=== PATIENT | female | born 2000 | race Caucasian/White ===

== ENCOUNTER 2020-04-15 10:27 | Emergency (ER) | payer MEDICAID, SELFPAY ==
[2020-04-15 10:29] VITALS: BP 102/65; PULSE 156; RESP 19; TEMP 37.8; O2SAT 99; BMI 18.8
--- NOTE | 2020-04-15 10:58 | ED.VIS.GEN ---
History of Present Illness Chief Complaint: Fever Narrative: Patient presents with fevers for the past few days. She has some cough and some dyspnea. She has no productive cough. She has no back pain or chest pain. She has no dysuria she has no rash, she denies any abdominal pain. She was tested for COVID yesterday but we do not have results. No neck pain or stiffness. No recent travel. Past Medical History - Allergies and Home Meds Allergies/Adverse Reactions: Allergies No Known Allergies Allergy (Verified 04/15/20 11:25) Primary Care Physician: Care Physician,No Primary [Primary Care Provider] - Past Medical History: None Smoking Status: Never smoker Review of Systems All systems negative except as indicated General: Denies: Fever Eyes: Denies: Visual changes - bilaterally ENT: Denies: Rhinorrhea, Sore throat Cardiovascular: Denies: Chest pain, Palpitations Respiratory: Reports: Dyspnea, Cough Gastrointestinal: Denies: Abdominal pain, Nausea, Vomiting Genitourinary: Denies: Dysuria Musculoskeletal: Denies: Myalgias, Arthralgias, Neck pain Skin: Denies: Rash Neurological: Denies: Weakness, Parasthesia Endocrine: Denies: Polyuria Physical Exam Vital Signs/Narrative: Vital Signs Temp Pulse Resp BP Pulse Ox 04/15/20 10:29 100.1 F H 156 H 19 H 102/65 99 General: Well nourished, Well developed, - - Sitting comfortably in bed. Negative for: No Acute Distress Head: Negative for: Normocephalic Eyes: Negative for: Perrl ENT: Moist mucous membranes Neck: Supple Cardiovascular: Regular rate, Regular rhythm Respiratory: No distress, CTA bilaterally Abdomen: Soft, Nontender Back: Nontender, Normal Inspection Extremities: Nontender, No edema Skin: Normal color Neurological: Alert, Normal Strength, Normal Sensation Psychological: Normal affect Diagnostic/Tx/Re-eval Chest X-Ray - ED: 1 View, Normal, Heart, Lungs - Medical Decision Making Patient has a normal chest x-ray she has leukocytosis and she is found to have a urinary tract infection on reevaluation she does have some left-sided CVA tenderness. She clinically has pyelonephritis. She was given 2 L of fluid she has a negative lactic acid and she tells me she is significantly improved. I believe outpatient management is reasonable, I told her if she does not improve or gets worse she needs to return otherwise she received IV Rocephin in the emergency department and will receive outpatient antibiotics. Urine was cultured. ED Disposition - Plan for ED Patient: Disposition: Psychiatric Hospital or Unit Diagnosis: Pyelonephritis Instructions: ED Pyelonephritis Female Adult Prescriptions: Ciprofloxacin [Cipro] 500 mg PO BID #14 tab Transmission Status: Pending to [facility] Hydrocodone Bitart/Apap 5-325 [Clyde 5MG-325MG] 1 tablet PO Q4H PRN PRN 2 Days #10 tablet PRN Reason: Pain Transmission Status: Sent to [facility] Referrals: Care Physician,No Primary [Primary Care Provider] - 3-5 Days
[2020-04-15 11:29] VITALS: BP 102/65; PULSE 156; RESP 19; TEMP 37.8; O2SAT 99
[2020-04-15 11:33] VITALS: BP 102/65; PULSE 110; RESP 19; O2SAT 97
[2020-04-15] MEDS: Ketorolac 15 MG/ML Vial IV (11:34)
[2020-04-15] MEDS: 0.9% Normal Saline 1,000 ML 1000 ML IV (11:34)
[2020-04-15 11:46] LABS: Absolute Lymphocyte Count 1.02 X10^3/uL (0.83-4.51); Basophil# 0.06 X10^3/uL; Basophil% 0.3 % (0-1); Differential Indicated SCAN CRITERIA MET; Eosinophil# 0.07 X10^3/uL; Eosinophils% 0.4 % (0-5); Hemoglobin 13.3 g/dL (12.0-15.0); Lymphocyte # 1.02 X10^3/ul (4.0); Lymphocyte % 5.5 % (19-41); Mean Corp Hgb Conc 33.3 g/dL (32-36); Mean Corpuscular Hgb 29.4 pg (27.0-32.0); Mean Corpuscular Volume 88.5 fL (81-99); Mean Platelet Vol. 10.4 fl (6.2-12.0); Monocyte# 2.16 X10^3/uL; Monocyte% 11.7 % (0-10); NRBC Flagged by Analyzer 0 % (0-5); Neutrophil # 15.02 X10^3/uL (2.7-7.7); Neutrophil % 81.3 % (47-70); POSITIVE DIFFERENTIAL YES; POSITIVE MORPHOLOGY YES; Platelet Count 258 K/mm3 (150-450); RBC Distribution Width CV 12.2 % (11.6-14.6); RBC Distribution Width SD 39.6 fl (35.1-43.9); Red Blood Count 4.52 M/mm3 (4.2-5.4); White Blood Count 18.5 K/mm3 (4.4-11.0)
--- NOTE | 2020-04-15 11:50 | RAD_ITS ---
STUDY: X-RAY CHEST REASON FOR EXAM: Female, 20 years old. FEVER AND COUGH X 4 DAYS; LOSS OF TASTE AND SMELL; TESTED FOR COVID YESTERDAY TECHNIQUE: PA and lateral views of the chest. COMPARISON: None. FINDINGS: EKG electrodes are seen. The lungs are clear and expanded. There is no demonstrated pleural abnormality. Normal size heart. Normal mediastinum and milagros. Normal visualized pulmonary arteries. Normal visualized aortic arch and descending thoracic aorta. Normal visualized thoracic spine. Normal visualized ribs, clavicles, and shoulders. There is no demonstrated abnormality of the visualized soft tissue structures of the upper abdomen. RAD/Chest PA and Lateral IMPRESSION: Normal x-ray examination of the chest. Electronically Signed: Cheikh Lizarraga, at 12:26 EDT , Service support ,
[2020-04-15 11:57] LABS: Color, Urine Yellow (Yellow); Glucose, Dipstick Normal (Normal); Ketone-Dipstick 50 mg/dl (Negative); Leukocyte Esterase-Dipstick 500 /ul (Negative); Nitrite-Dipstick Positive (Negative); Occult Blood-Urine 25 /ul (Negative); Protein-Dipstick 100 mg/dl (Negative); Specific Gravity, Urine 1.015 (1.002-1.030); Urine Clarity Sl. Cloudy (Clear); Urine Urobilinogen 12 mg/dl (Normal)
[2020-04-15 12:00] VITALS: BP 104/64; PULSE 113; RESP 20; TEMP 38.4; O2SAT 96
[2020-04-15 12:00] LABS: ALB/GLOB Ratio 0.7 RATIO (0.9-2.4); AST(SGOT) 8 U/L (15-37); Alanine Aminotransfer ALT/SGPT 14 U/L (13-56); Alkaline Phosphatase 88 U/L (45-117); Anion Gap 7 (5-15); BUN 9 mg/dL (7-18); BUN/Creat Ratio 10.9 RATIO (10-20); Calcium,Total 9.2 mg/dL (8.5-10.1); Chloride 101 mmol/L (98-107); Creatinine, Serum 0.83 mg/dL (0.55-1.02); EST Glomerular Filtration Rate 92 mL/min (>60); Est Glom Filt Rate - Afr Amer 111 mL/min (>60); Estimated Creatinine Clearance 83.74 ml/min; Globulin 4.5 g/dL (2.2-4.2); Glucose 128 mg/dL (74-106); Potassium 3.4 mmol/L (3.5-5.1); Protein, Total 7.5 g/dL (6.4-8.2); Sodium Level 134 mmol/L (136-145); Urine Bilirubin Dipstick 1 mg/dL (Negative)
[2020-04-15 12:08] LABS: Bacteria 2+ /hpf (None Seen); Mucous, Urine 1+ /hpf (<or=2+); Red Blood Cells-Urine 0-5 SEEN /hpf (0-5); Squamous Epithelial Cells - UA 0-5 SEEN /hpf (5-10); White Blood Cells 25-50 SEEN /hpf (0-5)
[2020-04-15] MEDS: Acetaminophen 500 MG Tablet 1000 MG PO (12:56)
[2020-04-15] MEDS: Ceftriaxone 1 GM/50 ML BAG IV (12:57)
[2020-04-15] MEDS: 0.9% Normal Saline 1,000 ML 999 ML IV (12:57)
[2020-04-15 13:00] VITALS: BP 104/64; PULSE 102; RESP 24; TEMP 37.8; O2SAT 97
[2020-04-15 13:03] LABS: Reactive Lymphocyte 2+
[2020-04-15 13:26] LABS: Lactic Acid 1.4 mmol/L (0.4-1.9)
[2020-04-15 13:54] VITALS: BP 96/59; PULSE 107; RESP 18; O2SAT 97
[2020-04-17 12:14] LABS: Pathologist Review Reviewed
== END 2020-04-15 14:08 | disposition home or self-care (01) ==
PROVIDERS: Emergency Provider Emergency Medicine
DX: N12 Tubulo-interstitial nephritis, not specified as acute or chronic (principal)
CPT/HCPCS: 71046; 80053; 81001; 83605; 85025; 87086; 87088; 87186; 96361; 96365; 96375; 99285; J7030; J7050; A4216

== ENCOUNTER 2021-03-23 05:35 | Inpatient (IN) | payer MEDICAID, SELFPAY ==
[2021-03-23] VITALS (22 sets, daily range): BP systolic 99–120; BP diastolic 55–73; PULSE 54–79; RESP 16–20; TEMP 36.6–37.2; O2SAT 97–100; BMI 24.5
[2021-03-23] MEDS: Lactated Ringers 1,000 ML 200 ML IV (05:45)
[2021-03-23] MEDS: Lactated Ringers 500 ML 999 ML IV (05:49)
[2021-03-23 06:00] LABS: Absolute Lymphocyte Count 3.43 X10^3/uL (0.83-4.51); Absolute Neutrophil Count 10.4 X10^3/uL (2.0-7.7); Basophil# 0.05 X10^3/uL; Basophil% 0.3 % (0-1); Eosinophil# 0.07 X10^3/uL; Eosinophils% 0.5 % (0-5); Hematocrit 36.2 % (37-47); Hemoglobin 11.3 g/dL (12.0-15.0); Lymphocyte # 3.43 X10^3/ul (0.83-4.51); Lymphocyte % 22.4 % (19-41); Mean Corp Hgb Conc 31.2 g/dL (32-36); Mean Corpuscular Hgb 24.8 pg (27.0-32.0); Mean Corpuscular Volume 79.4 fL (81-99); Mean Platelet Vol. 11.5 fl (6.2-12.0); Monocyte# 1.17 X10^3/uL; Monocyte% 7.7 % (0-10); NRBC Flagged by Analyzer 0 % (0-5); Neutrophil # 10.43 X10^3/uL (2.7-7.7); Neutrophil % 68.2 % (47-70); Platelet Count 324 K/mm3 (150-450); RBC Distribution Width CV 14.9 % (11.6-14.6); Red Blood Count 4.56 M/mm3 (4.2-5.4); White Blood Count 15.3 K/mm3 (4.4-11.0)
[2021-03-23] MEDS: Oxytocin 30 units/NS 500 ml 30 UNITS/500 ML IV.SOLN 334 UNITS IV (06:23)
--- NOTE | 2021-03-23 06:36 | HP.PCM.OB_ITS ---
HPI - General General Date of Admission: 03/23/21 HPI Narrative SANJEEV LEMA, is a 21 F at 40.5 weeks gestation who presents to labor and delivery in active, spontaneous labor. She started having contractions yesterday and they continued through the night. Denies any loss of fluid or vaginal bleeding. Positive movement. Maternal Data Information CRYSTAL Calculator Estimated Delivery Date Method Current WG Current Estimate 03/18/21 Manual 40w 5d PFSH Home Medications [id number] [] 1 tab PO DAILY 03/23/21 [History Last Taken Unknown] Allergy/AdvReac Type Severity Reaction Status Date / Time No Known Allergies Allergy Verified 03/23/21 05:41 Social History Smoking Status: Current every day smoker History 2 Elective abortions Hx Para 1 Spontaneous abortions Hx # Term Pregnancies Ectopic pregnancies Hx # Pregnancies Multiple births # of living children 1 NST FHR Rate Baby A Baseline: 155 Variability:: Moderate Accelerations:: 15 x 15 Decelerations:: None NST Reactive:: Yes FHR Category:: Category I Uterine Activity:: 1-3 minutes, palpate strong and relaxed in between ROS Eyes Eyes: Denies blurry vision, change in vision or spots in vision ENT HEENT: Denies dizziness or headache(s) Cardiovascular Cardiovascular: Denies abdominal pain, chest pain or dyspnea Respiratory/Chest Respiratory/Chest: Denies cough, dyspnea, shortness of breath at rest or shortness of breath with exertion Gastrointestinal Gastrointestinal: Denies abdominal pain, diarrhea or vomiting Genitourinary Genitourinary: Denies change in urinary stream, difficulty urinating or dysuria Musculoskeletal Musculoskeletal: Reports none Integumentary Integumentary: Denies rash Neurologic Neurologic: Denies dizziness, headache(s), memory loss or weakness Psychiatric Psychiatric: Reports none Vital Signs Vital Signs Vital Signs: 03/23/21 05:30 03/23/21 05:31 03/23/21 06:35 Temperature 99.0 F Pulse Rate 79 77 Blood Pressure 114/69 BP Systolic 114 BP Diastolic 69 Pulse Ox 100 97 03/23/21 06:36 Temperature Pulse Rate 76 Blood Pressure 111/69 BP Systolic 111 BP Diastolic 69 Pulse Ox Weight Weight: 143 lb 3.2 oz Body Mass Index (BMI) 24.5 Physical Exam Const alert, oriented x3 and no apparent distress General Appearance: cooperative Orientation / Consciousness: awake Exam Limitations: no limitations HEENT normocephalic Head and Scalp: normal to inspection Eyes General Eye: normal appearance of both eyes Neck full ROM and no lymphadenopathy Lymph Lymphatic: no lymphadenopathy noted Chest inspection of chest normal Resp normal respiratory effort, normal air movement and clear to auscultation bilaterally Effort and Inspection: able to speak in complete sentences and symmetric chest m ovement Cardio regular rate and regular rhythm GI normal to inspection, nondistended, normoactive bowel sounds Manual OB Exam: dilated 7cm, effaced 90, station +1 and other Amniotic Fluid: other bulging bag Back/Spine normal ROM Extremity full ROM and no calf tenderness Skin no rashes or lesions noted General Skin Exam: no breakdown Neuro oriented x3 and CN's II-XII intact bilaterally Psych mental status grossly normal and thought process normal Labs Labs Labs: Blood Type B POSITIVE Antibody Screen NEGATIVE Hct 36.2 % (37-47) L Hgb 11.3 g/dL (12.0-15.0) L Rhogam given: No Assessment & Plan (1) Active labor at term: (2) Spontaneous onset of labor: PLAN: Admit to labor and delivery Routine labs Start IV fluids and titrate per orders GBS negative Epidural when indicated Anticipate Dr. Morgan notified and is collaborating physician
--- NOTE | 2021-03-23 06:47 | EX.PCM.OBRPT ---
Assessment & Plan (1) Precipitous delivery: (2) (spontaneous vaginal delivery): (3) Intact perineum: (4) 40 weeks gestation of : Maternal Data Information CRYSTAL Calculator Estimated Delivery Date Method Current WG Current Estimate 03/18/21 Manual 40w 5d Vaginal Delivery Maternal Presentation Maternal Presentation: Active Labor Operative Information Date of Procedure: 03/23/21 Pre-Operative Diagnosis: Term gestation, spontaneous, active labor Post-Operative Diagnosis: precipitous delivery of live male Type of Anesthesia: None Estimated Blood Loss: 200 Time of Delivery: 06:21 Findings Description of Procedure: Patient arrived to unit and quickly began feeling like she needed to bear down with contractions. Spontaneous rupture of membranes at 0616 for clear fluid. Patient complete dilation and +2 station. Delivery of head with minimal maternal effort followed quickly by remainder of body. Vigorous male placed on maternal abdomen and was attended to by nursing staff. Pitocin IV started for active management of the third stage of labor. 3 vessel cord clamped and cut by FOB after 2 minute delay. Placenta delivered spontaneously and intact. After inspection, no lacerations noted. Fundus firm 2 below U. Hemostasis occurred. EBL 200 cc and APGARS 8/9. Patient and infant bonding well. Dr. Morgan notified of delivery. Presentation: Vertex Amniotic Membrane Rupture Type: Spontaneous Time of Membrane Rupture: 0616 Amniotic Fluid Description: Clear Placental Delivery Description: Spontaneous Placenta Disposition: [facility] Cord Vessel Description: 3 Vessels Cord Entanglement: None A Gender: Male (1 minute): 8 (5 minute): 9 Delayed Cord Clamping: Yes Post Vaginal Delivery Medications Given After Delivery: IV Pitocin Episiotomy Description: None Laceration: None Complication Complications: None
[2021-03-23] MEDS: Ibuprofen 600 MG Tablet PO (07:26)
--- NOTE | 2021-03-23 15:30 | CASEMGMT ---
Social Work Labor and Delivery Unit Consult received. Chart reviewed. Presented to patient/mother of baby room. Room darkened and MOB appeared to be resting. Introduced to self and role. Offered to meet with MOB now, or tomorrow if MOB would like to rest. MOB reports has only had about a half hour of sleep, so would prefer to talk tomorrow. Plan: Meet with MOB on 03.24.2021. -MOHAN Jose, SOUND MIXER
[2021-03-23] MEDS: Prenatal Vits Tablet 1 TABLET PO (19:54)
[2021-03-24 00:02] VITALS: BP 115/76; PULSE 81; RESP 16; TEMP 36.6
[2021-03-24] MEDS: Acetaminophen 500 MG Tablet 1000 MG PO (02:46)
[2021-03-24 03:10] VITALS: BP 97/63; PULSE 64; RESP 18; TEMP 36.7
--- NOTE | 2021-03-24 08:07 | PCM.PN.OB ---
Subjective Subjective patient seen at bedside, doing well. Patient reports good pain control. lochia mild. Objective Data Objective Data Vital Signs: Vital Signs Temp Pulse Resp BP Pulse Ox 98.1 F 64 18 97/63 97 03/24/21 03:10 03/24/21 03:10 03/24/21 03:10 03/24/21 03:10 03/23/21 06:35 Oxygen Delivery Method Room Air Weight: 64.954 kg Body Mass Index (BMI) 24.5 Intake & Output: Intake and Output for Last 24 Hours 03/22/21 03/23/21 03/24/21 23:59 23:59 23:59 Intake Total 1013.33 / 1013.33 Output Total 1200 / 1200 Balance -186.67 / -186.67 Lab / Micro Data Result Diagrams: 03/23/21 05:45 Assessment & Plan (1) Vaginal delivery: PLAN: PPD# 1 , Doing well Routine care pain mgmt ambulation vs stable dc home
--- NOTE | 2021-03-24 08:09 | PCM.DC ---
Discharge Instructions Diet Discharge Diet: No restrictions Activity Discharge Activity: Return to Normal Activity May resume sexual activity in: 6-8 weeks Dressing / Incision Call your doctor if you observe: Fever of 101 or Higher, Inability to urinate, Using more than one pad per hour and Uncontrolled pain Follow Up Care Please Follow Up With: Lizzie Ramos MD When: 1-2 weeks post and again at 6 weeks post . [phone] Test Results: Test results from this visit will be discussed in further detail at your follow-up appointment, if applicable. Discharge Plan Admission Admit Date/Time: 03/23/21 05:35 Attending Provider: Chery Hogue Primary Care Provider: Care Physician,Sara Primary Instructions Forms: Information Patient Instructions: After a Vaginal Discharge Orders/Prescriptions Prescriptions: New ibuprofen 600 mg Tablet 600 mg PO Q6H PRN PRN (Reason: Pain Score 1-3) Qty: 30 RF: 0 Continued [id number] 1 mg Tablet 1 tab PO DAILY RF: 0 Referrals / Follow Up: Care Physician,No Primary [Primary Care Provider] -
--- NOTE | 2021-03-24 11:30 | CASEMGMT ---
Social Work Assessment Labor and Delivery Unit Patient Address: [address] [place] [address], [address], [place] [address] Phone number: [phone] Date of Referral: 03.23.2021 Time of Referral: 722 Referred By: Chery Hogue CNM Date of Intervention: 03.24.2021 Time of Intervention: 113 Reason for Referral: support, resources, told RN that had a lot going on right now, father of baby (FOB) recovering addict History obtained from: Medical records and mother of baby (MOB) Denae Bowen Household composition: MOB reports to live in the home of FOB's parents in the finished basement that MOB's rents. MOB's older child resides in this home as well. MOB reports to feel safe in home situation. FOB does not currently live in the home. Patient's parent/guardian status: MOB is a 21 year old single female, who was involved with the reported FOB Hernandez Shultz (age 23) for 3 years. was planned, then MOB reports during the the FOB decided that wanted other things and found a new girlfriend. FOB has been back and forth several times, but not at the point that living with the new girlfriend. MOB reports to feel can get along with the FOB with parenting, and that okay not being in a relationship. [place] baby is the first for the FOB and the 2nd for MOB. MOB's minor children include: Katherine Brito, born 8, father is En Brito. [place] baby, Mannie Shultz, born 525.2022, father is Hernandez Shultz. Medical History: ANA is G2, P1 to 2 after delivering Mannie. care started at 7 weeks gestation. Care regular with exception of 7 week gap in care from 12-19 weeks. Delivery precipitous for Mannie. Birthweight, 8 pounds 11 ounces. Apgars 8 and 9 at 1 and 5 minutes of life. Educational Status: ANA has a high school diploma. Denies any issues with reading, writing, or learning comprehension. Financial Status: ANA reports to work at [employer] and plans to return to this employment after maternity leave. States to have money saved right now and no financial concerns. Katherine's dad is ordered to pay child support but this is sporadic. Infant Supplies: Reports to have needed infant supplies for the baby including a bassinet, cradle, car seat, clothing, diapers, wipes, and a breast pump was delivered to the room while psych social worker with the MOB. Childcare/Caregiver(s): MOB plans to be primary caregiver. MOB's mother has helped with babysitting Katherine. GARRET's sister Denise is willing to babysit both Katherine and Mannie when MOB returns to work. Transportation: Denies any issues. Programs/Agencies Involved: Reports to have food and medical through [facility]. Plans to apply for WIC. Declines [facility] or [employer] referrals. Children Services/Legal Issues: Denies any legal issues or history of children services involvement. Behavioral Health Issues: Mental Health History: MOB denies any official diagnoses of depression, anxiety or other emotional health issues. Possibly some PPD after Katherine was born, but not diagnoses. Was a teen mom at the time and having issues with the father of that oldest child. Denies any history of suicidal ideation, planning, intent or attempts. No reports of self injury. No thoughts of harm to others reported. 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 Denies IV drug use. Reports quit around the time of decision to get . Reports has been sober for about a year; MOB unable to report what her sober date is, just the timeframe quitting which is reported to be about a year ago. Denies any history of other illicit use history such as heroin, marijuana, cocaine, pills, or other drugs. Reports does not drink. Does smoke about a half a pack of tobacco a day. Treatment History: Reports went to outpatient counseling at [facility] in [place] last year and found this helpful. Family History: Chart indicates MOB's father has alcohol use history. Drug Screens: Negative drug screen for MOB on 08.04.2020 Family/Social Stressors: Planned and then FOB deciding to leave the relationship. MOB endorses that FOB has history of methamphetamine use himself, longest time of sobriety for the FOB during time together with MOB is reported as 2 months. MOB reports GARRET is now living with a woman who may also have some drug history, and who has lost custody of at least one child. MOB reports [employer] has brought this woman over to MOB's home, as this is FOB's mothers home. MOB reports the FOB's mother has been supportive and told FOB it is not okay to bring the new girlfriend over. MOB reports will be looking for a new place to live soon, so as to help ensure proper boundaries with the FOB. 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 Support Systems: MOB reports her mother has been a good support for practical help. GARRET's sister denise is reported as a good support for emotional support and has agreed to help with practical help as well with babysitting. Depression/Shaken Baby/Safe Sleeping: Educated to topics and provided written material for home going. ASSESSMENT: Met with MOB in room. MOB alone, caring for baby. Appearing to be caring for baby in a gentle manner. MOB reports to have needed supplies to care for baby and to feel safe in home situation, though does plan to get a new place in the future. MOB receptive to having social work provide resource for home going, and reports considering counseling. MOB reports will make appointments on own. MOB reports to be sober or meth for a year now, and denies intent to allow the FOB to care for baby if there is any concern for FOB not being sober himself. MOB also reports plan to not allow the children to go to the FOB's new home in light of the woman there having children services involvement and noncustody of own children. There were not positive drug screens during . No testing on baby. No voiced concerns regarding mother/child bonding or interactions. Nursing had reported the father of baby, on day of delivery was observed to be twitchy in motor activity. FOB not present during social work visit. MOB reports the FOB left yesterday and stated plan to come back but never did. MOB reports that's okay, that has learned to not expect things from the FOB, then if FOB does show up then that's fine, MOB is just not counting on that. Safe Plan of Care for related to substance use: Continued abstinence of substances. Not allow the baby to be cared for by anyone in active use of substances. PLAN: MOB and baby to home. Resources provided for homegoing including [facility] applications, counseling options, [facility] resource list, and packet on mood and anxiety disorders. No other services requested or indicated. -FEDERICO Jose, EX ASSISTANT/PROGRAM DIRECTOR *Information documented in this assessment generated with [employer]*
[2021-03-24] MEDS: Prenatal Vits Tablet 1 TABLET PO (11:55)
== END 2021-03-24 14:30 | disposition home or self-care (01) | DRG 560 ==
LOC: WPOUT 05:35 → WP 05:35
PROVIDERS: Admitting Provider Advanced Practice Midwife; Referring Provider Advanced Practice Midwife; Visit Provider Advanced Practice Midwife
DX: O80 Encounter for full-term uncomplicated delivery (principal); Z3A.40 40 weeks gestation of pregnancy; Z37.0 Single live birth
CPT/HCPCS: 59025; 59050; 85025; 86850; 86900; 86901; 99218; J7120; G0378